=== PATIENT | female | born 1995 | race Hispanic/Latino ===

== ENCOUNTER 2024-07-12 12:30 | Emergency (ER) | payer BC ==
[~2024-07-12] VITALS: Ht 162.6 cm; Wt 57.6 kg
[2024-07-12] MEDS ORDERED: PRENATABS FA T1 EACH PO (13:37)
[2024-07-12 13:47] LABS: BASOPHILS 0.3 % (0-2); EOSINOPHILS 0.6 % (0-6); HEMATOCRIT 38.9 % (35.0-50.0); HEMOGLOBIN 12.6 g/dL (12.0-18.0); LYMPHOCYTES 22.7 % (24-44); MCH 27.2 (27-36); MCHC 32.5 g/dl (30-36); MCV 83.6 fl (81-99); MONOCYTES 5.2 % (0-12); NEUTROPHILS 71.2 % (39-80); PLATELET COUNT 215 K/uL (140-440); RBC 4.65 M/ul (4.3-5.7); RDW 15.1 (10.5-15.0)
[2024-07-12 14:09] LABS: ABO A; RH POSITIVE
[2024-07-12 14:15] LABS: ALBUMIN 4.1 g/dL (3.4-5.0); ALBUMIN/GLOBULIN RATIO 1.21 (1.1-2.4); ANION GAP 12.6 (7-21); BILIRUBIN, TOTAL 0.5 mg/dL (0.2-1.0); BUN/CREATININE RATIO 15.3 (6.0-28.6); CALCIUM 9.1 mg/dL (8.5-10.1); CREATININE, SERUM 0.98 mg/dL (0.55-1.02); POTASSIUM 3.6 mmol/L (3.5-5.1); PROTEIN, TOTAL 7.5 g/dL (6.4-8.2)
[2024-07-12 15:42] LABS: BILIRUBIN, URINE NEGATIVE (negative); BLOOD/HGB, URINE MODERATE (Negative); KETONE, URINE NEGATIVE (Negative); LEUK ESTERASE, URINE NEGATIVE (negative); NITRITE, URINE NEGATIVE (negative); PH, URINE 6.5 (5-7)
[2024-07-12 15:49] LABS: BACTERIA, URINE NONE SEEN /hpf (negative); CASTS, URINE NONE SEEN \\lpf; COLLECTION TYPE, URINE CLEAN CATCH; CRYSTALS, URINE NONE SEEN (0-1+); EPITHELIAL CELLS, URINE SQUAMOUS 1+ /lpf (0-1+); RED BLOOD CELLS, URINE >50 /hpf (0-5); REFLEX CULTURE, URINE No (No); WHITE BLOOD CELLS, URINE 0-1 /HPF (0-5)
[2024-07-12 16:50] VITALS: BP 100/77
== END 2024-07-12 16:51 | disposition home or self-care (01) ==
LOC: ED 12:30
PROVIDERS: Emergency Medicine
DX: O03.9 Complete or unspecified spontaneous abortion without complication (principal); Z79.899 Other long term (current) drug therapy
CPT/HCPCS: 36415; 76801; 80053; 81001; 84702; 85025; 86900; 86901; 99284-25

== ENCOUNTER 2025-03-26 12:46 | Emergency (ER) | payer BC ==
[~2025-03-26] VITALS: Ht 162.6 cm; Wt 62.1 kg
[~2025-03-26 12:46] MED LIST: PRENATABS FA T1 EACH PO
[2025-03-26 13:23] LABS: BASOPHILS 0.2 % (0.1-1.2); EOSINOPHILS 0.4 % (0.7-5.8); LYMPHOCYTES 14.3 % (19.3-51.7); MCH 28.9 PG (25.6-32.2); MCHC 33.7 g/dL (32.2-35.5); MCV 85.6 fL (79.4-94.8); MONOCYTES 4.4 % (4.7-12.5); NEUTROPHILS 80.4 % (34.0-71.1); RBC 4.09 M/uL (3.93-5.22)
[2025-03-26] MEDS ORDERED: VENTOLIN HFA18 GM (13:33)
[2025-03-26] MEDS ORDERED: UNISOM25 MG PO (13:33)
[2025-03-26] MEDS ORDERED: UNISOM25 MG (13:34)
[2025-03-26 13:41] LABS: BLOOD/HGB, URINE NEGATIVE (Negative); KETONE, URINE NEGATIVE (Negative); LEUK ESTERASE, URINE NEGATIVE (negative); NITRITE, URINE NEGATIVE (negative)
[2025-03-26 13:46] LABS: ABO A; RH POSITIVE
[2025-03-26 13:51] LABS: GLOMERULAR FILTRATION RATE,EST 140.0 mL/min (>60); UREA NITROGEN 13.0 mg/dL (7-18)
[2025-03-26 16:41] VITALS: BP 91/63
== END 2025-03-26 16:40 | disposition home or self-care (01) ==
LOC: ED 12:46
PROVIDERS: Emergency Medicine
DX: O20.8 Other hemorrhage in early pregnancy (principal); Z3A.12 12 weeks gestation of pregnancy
CPT/HCPCS: 36415; 76801; 76815; 80048; 81003; 84702; 85025; 86900; 86901; 99284-25